=== PATIENT | female | born 2000 | race Caucasian/White ===

== ENCOUNTER → 2020-04-06 | Outpatient (CLI) | payer OTHER ==
--- NOTE | 2020-04-06 16:46 | US ---
EXAMINATION TYPE: Transabdominal DATE OF EXAM: 04/06/2020 3:57 PM COMPARISON: NONE CLINICAL HISTORY: Z36 confirm dates. Dates. No pain. EXAM PERFORMED: Transvaginal (TV) and Transabdominal (TA) EXAM MEASUREMENTS: GESTATIONAL AGE / DATING Physician Established: Not yet established Dates by LMP: (11 weeks/2 days) EDC: 10/24/2020 Dates by First Scan: No previous this is first scan ( Dates by Current Scan for: (6 weeks/5 days) EDC: 11/25/2020 MATERNAL ANATOMY Uterus: 11.9 x 6.3 x 5.1 cm Right Ovary: 2.7 x 1.6 x 1.1 cm Left Ovary: 2.9 x 2.0 x 2.2 cm Post CDS / Adnexa: no free fluid Presence of free fluid: no Presence of corpus luteal cyst: Left ovarian hypoechoic lesion - 2.3 x 1.7 x 1.5 cm GESTATION / SURVEY CRL: Not visualized MSD: 1.8 cm (6 weeks/5 days) Yolk Sac (normal less than 6mm): 1.4 mm IUP: No viable IUP seen at this time Date of LMP: 01/18/2020, G1 Beta HcG (if available): Not available at this time GS and YS seen within endometrial canal. GS appears irregular in shape and appearance. CRL not visua lized. IMPRESSION: Intrauterine gestational sac with yolk sac. Sac is irregular. Blighted ovum is possible. No evidence of ectopic .
== END | disposition home or self-care (01) ==
LOC: RADUSWWP 15:17
PROVIDERS: ATTEND Obstetrics & Gynecology
DX: Z36.9 Encounter for antenatal screening, unspecified (principal); Z3A.01 Less than 8 weeks gestation of pregnancy
CPT/HCPCS: 76801; 76817

== ENCOUNTER 2020-04-19 08:21 | Emergency (ER) | payer OTHER ==
[2020-04-19 08:25] VITALS: BP 120/76; PULSE 73; RESP 18; TEMP 99
--- NOTE | 2020-04-19 09:07 | ED ---
Female Urogenital HPI - General Chief complaint: Vaginal Bleeding Stated complaint: 13 wks preg - Miscarriage Time Seen by Provider: 04/19/20 08:27 Source: patient, RN notes reviewed Mode of arrival: ambulatory Limitations: no limitations - History of Present Illness Initial comments: 20-year-old female presents emergency Department with chief complaint of vaginal bleeding. Patient is known to be had an ultrasound last week with her RELAY DISPATCHER found to have a blighted ovum. Patient was scheduled for D&C tomorrow. Patient states that she no bleeding prior to this but states that she started bleeding around midnight. She had 2 hours of heavy bleeding and mild cramping which has now resolved she has no pain she has very minimal to no bleeding. Patient states that she was supposed call today for her time for D&C tomorrow. Patient has no other significant health problems denies taking any medications currently. - Related Data Allergies Allergy/AdvReac Type Severity Reaction Status Date / Time No Known Allergies Allergy Verified 04/19/20 08:22 Review of Systems ROS Statement: Those systems with pertinent positive or pertinent negative responses have been documented in the HPI. ROS Other: All systems not noted in ROS Statement are negative. Past Medical History Past Medical History: No Reported History History of Any Multi-Drug Resistant Organisms: None Reported Past Surgical History: Adenoidectomy Past Psychological History: Anxiety, Depression Smoking Status: Never smoker Past Alcohol Use History: None Reported Past Drug Use History: Marijuana General Exam Limitations: no limitations General appearance: alert, in no apparent distress Head exam: Present: atraumatic, normocephalic, normal inspection Eye exam: Present: normal appearance, PERRL, EOMI. Absent: scleral icterus, conjunctival injection, periorbital swelling Respiratory exam: Present: normal lung sounds bilaterally. Absent: respiratory distress, wheezes, rales, rhonchi, stridor Cardiovascular Exam: Present: regular rate, normal rhythm, normal heart sounds. Absent: systolic murmur, diastolic murmur, rubs, gallop, clicks GI/Abdominal exam: Present: soft, normal bowel sounds. Absent: distended, tenderness, guarding, rebound, rigid Course Vital Signs 04/19/20 08:22 Temperature 99 F Pulse Rate 73 Respiratory 18 Rate Blood Pressure 120/76 O2 Sat by Pulse 96 Oximetry Medical Decision Making - Medical Decision Making 20-year-old presented for vaginal bleeding/miscarriage. Patient has no significant bleeding she is hemodynamically stable. Patient has a blighted ovum. Patients RELAY DISPATCHER Dr. Washington was attempted to contact unable to contact is not in office today. Patient is advised follow-up with her scheduled appoin tment tomorrow she is return return if any worsening or changing of her symptoms. Patient agrees with plan. Disposition Clinical Impression: Miscarriage Disposition: HOME SELF-CARE Condition: Stable Instructions (If sedation given, give patient instructions): Miscarriage (ED) Additional Instructions: Please return to the Emergency Department if symptoms worsen or any other concerns. Is patient prescribed a controlled substance at d/c from ED?: No Referrals: None,Stated [Primary Care Provider] - 1-2 days Av Watson DO [Doctor of Osteopathic Medicine] - 1-2 days Time of Disposition: 09:06
== END 2020-04-19 09:25 | disposition home or self-care (01) ==
LOC: EC 08:21
DX: O03.9 Complete or unspecified spontaneous abortion without complication (principal); Z3A.13 13 weeks gestation of pregnancy
CPT/HCPCS: 99283

== ENCOUNTER 2020-04-20 07:02 | Day surgery (SDC) | payer OTHER ==
[~2020-04-20 07:02] MED LIST: Pre Op ABX Message 1 EACH MISC MISCELLANE ONE
[2020-04-20 07:33] VITALS: RESP 16
[2020-04-20] MEDS ORDERED: LACTATED RINGERS 1,000 ML IV ONE (16:04)
[2020-04-20] MEDS ORDERED: LIDOCAINE 1% (10MG/ML) FOR IV START INTRADERMA ONE (16:04)
[2020-04-20] MEDS ORDERED: ONDANSETRON 4 MG/2 ML VIAL ONE ×2 (16:08→17:26)
[2020-04-20] MEDS ORDERED: DEXAMETHASONE SOD PHOSPHATE 4 MG/ML 1 ML VIAL IV ONE ×2 (16:10→17:37)
--- NOTE | 2020-04-20 17:01 | P.HPOB ---
History of Present Illness H&P Date: 04/20/20 Chief Complaint: Blighted ovum Patient is a 20-year-old at approximately 8 weeks gestation who had an ultrasound approximately 10 days ago showing a gestational sac at that time they thought they might have seen a yolk sac but they did not see fetus a repeat ultrasound was done 04/18/2020 confirming blighted ovum she is supposed to be approximately 8 weeks along but there is no fetus and there is no yolk sac on our ultrasound done in the office. Due to this finding should we had discussed either monitoring her with serial beta hCGs versus a suction D&C and she is opted for a suction D&C. Risks/benefits/alternatives to the suction D&C again were discussed with the patient in detail and did include but were not limited to bleeding and infection, damage to the bladder or bile, complete perforation and possible need for other surgeries. Past Medical History Past Medical History: No Reported History History of Any Multi-Drug Resistant Organisms: None Reported Past Surgical History: Adenoidectomy Past Psychological History: Anxiety, Depression Smoking Status: Never smoker Past Alcohol Use History: None Reported Past Drug Use History: Marijuana Medications and Allergies Home Medications Medication Instructions Recorded Confirmed Type No Known Home Medications 04/20/20 04/20/20 History Allergies Allergy/AdvReac Type Severity Reaction Status Date / Time No Known Allergies Allergy Verified 04/20/20 07:34 Exam Osteopathic Statement: *. No significant issues noted on an osteopathic structural exam other than those noted in the History and Physical/Consult. Vital Signs Temp Pulse Resp BP Pulse Ox 04/20/20 16:00 98.3 F 80 16 114/58 100 04/20/20 07:30 97.5 F L 81 16 117/58 99 Intake and Output 04/20/20 04/20/20 04/20/20 06:59 14:59 22:59 Other: Weight 61.6 kg - OBG Physical Exam Breast: both: normal (no masses) Abdomen: bowel sounds normal, no diffuse tenderness, no bruit present, no guarding noted, no hepatomegaly, no splenomegaly, no mass Vulva: both: normal Vagina: normal moisture, no discharge Cervix: no lesion, no discharge Uterus: normal size, normal contour Adnexa: both: normal Anus/Rectum: normal perianal skin, no rectal mass, no hemorrhoids, heme negative
[2020-04-20] MEDS ORDERED: KETOROLAC 15 MG/ML 1 ML VIAL ONE (17:26)
[2020-04-20] MEDS ORDERED: MIDAZOLAM 2 MG/2 ML VIAL ONE (17:26)
[2020-04-20] MEDS ORDERED: PROPOFOL 10 MG/ML 20 ML VIAL IV ONE (17:26)
[2020-04-20] MEDS ORDERED: LIDOCAINE 1% INJ 10MG/ML (20 ML MDV) ONE (17:26)
[2020-04-20] MEDS ORDERED: fentaNYL (PF) 50 MCG/ML 2 ML AMP ONE (17:26)
[2020-04-20] MEDS ORDERED: ONDANSETRON 4 MG/2 ML VIAL IVP ONE (17:37)
[2020-04-20] MEDS ORDERED: LACTATED RINGERS 1,000 ML IV SCH (17:37)
[2020-04-20] MEDS ORDERED: MIDAZOLAM 2 MG/2 ML VIAL IV PRN (17:37)
[2020-04-20] MEDS ORDERED: HYDROmorphone 0.5 MG/0.5 ML SYRINGE IVP PRN (17:37)
[2020-04-20] MEDS ORDERED: SCOPOLAMINE 1.5MG/72HR PATCH TRANSDERM ONE (17:37)
--- NOTE | 2020-04-20 17:59 | P.OP ---
Date of Procedure: 04/20/20 Preoperative Diagnosis: Blighted ovum Postoperative Diagnosis: Same Procedure(s) Performed: Suction D&C Anesthesia: GAYLEA Surgeon: Av Watson Estimated Blood Loss (ml): 50 IV fluids (ml): 400 Pathology: other (Products of conception) Condition: stable Disposition: same day Operative Findings: Pathology pending Description of Procedure: Patient was taken to the operating suite where a general anesthetic was found be adequate. She was prepped and draped in the normal sterile fashion and placed in dorsal lithotomy position. Initially a weighted speculum was inserted in the vagina and the anterior lip of the cervix identified and grasped with single- tooth tenaculum. Cervix was then dilated and using an 8 curved tip suction catheter it was inserted and suction was applied. Using clockwise rotation and the movement of the suction tip curette tissue was extruded. This was done in 3 passes. This was then removed and gentle sharp curettings of endometrium were obtained to verify removal of all products or is much of the products as possible. 2 more passes were then done with the suction tip curette and bleeding was noted to be minimal at the conclusion of the procedure. All incidents were then removed. Sponge, lap, needle counts were all correct 2. Patient was then taken to the recovery room in stable and satisfactory condition. Plan - Discharge Summary New Discharge Prescriptions: New Ibuprofen [Motrin] 600 mg PO Q6HR PRN #30 tab PRN Reason: Pain Discharge Medication List Ibuprofen [Motrin] 600 mg PO Q6HR PRN #30 tab 04/20/20 [Rx] Follow up Appointment(s)/Referral(s): Av Watson DO [Doctor of Osteopathic Medicine] - 3 Weeks Activity/Diet/Wound Care/Special Instructions: No heavy lifting, limit stairs and driving, pelvic rest. call for any high temps, heavy bleeding or severe pain Discharge Disposition: HOME SELF-CARE
[2020-04-20 18:10] VITALS: TEMP 97.8
[2020-04-20 18:34] VITALS: BP 125/78; PULSE 81
== END 2020-04-20 18:42 | disposition home or self-care (01) ==
LOC: OR 07:02
PROVIDERS: ATTEND Obstetrics & Gynecology
DX: O02.0 Blighted ovum and nonhydatidiform mole (principal); F41.9 Anxiety disorder, unspecified; F32.9 Major depressive disorder, single episode, unspecified; Z90.89 Acquired absence of other organs
CPT/HCPCS: 59820; J2250; J1100; J2405; J2001; J3010; J1885; J2704; 88305